=== PATIENT | female | born 1960 | race Caucasian/White ===

== ENCOUNTER 2018-04-14 13:56 | Day surgery (SDC) | payer BC ==
[2018-04-10 16:47] LABS: BASOPHILS % (AUTO) 0.4 % (0-1); EOSINOPHILS # (AUTO) 0.1 X10'3 (0-0.9); EOSINOPHILS % (AUTO) 2.4 % (0-6); HEMOGLOBIN 14.7 g/dl (12.0-16.0); LYMPHOCYTES # (AUTO) 2.2 X10'3 (1.1-4.8); LYMPHOCYTES % (AUTO) 36.3 % (21-51); MEAN CORPUSCULAR HGB CONC 34.2 % (33.0-36.5); MEAN CORPUSCULAR VOLUME 90.7 FL (78-98); MONOCYTES # (AUTO) 0.4 X10'3 (0-0.9); MONOCYTES % (AUTO) 5.8 % (2-12); NEUTROPHILS # (AUTO) 3.4 X10'3 (1.8-7.7); NEUTROPHILS % (AUTO) 55.1 % (42-75); PLATELET COUNT 182 X10'3 (140-440); RED BLOOD COUNT 4.74 X10'6 (4.20-5.60); RED CELL DISTRIBUTION WIDTH 13.4 % (11.5-14.5); WHITE BLOOD COUNT 6.2 X10'3 (4.5-11.0)
[2018-04-10 16:57] LABS: INR 0.9 INR; PARTIAL THROMBOPLASTIN TIME 30 SECONDS (22-32); PROTHROMBIN TIME 9.8 SECONDS (9.0-12.0)
[2018-04-10 17:02] LABS: ALBUMIN 3.9 G/DL (3.4-5.0); ANION GAP 11 (8-16); BLOOD UREA NITROGEN 15 MG/DL (7-18); BUN/CREATININE RATIO 23.8 (6.6-38.0); CALCIUM 9.1 MG/DL (8.5-10.1); CHLORIDE 103 MMOL/L (99-107); CHOL/HDL RATIO 3.3 (0.00-4.99); CHOLESTEROL 204 MG/DL (0-200); CREATININE 0.63 MG/DL (0.40-0.90); GLUCOSE 84 MG/DL (70-104); HDL CHOLESTEROL 61 MG/DL (35-60); LDL CHOLESTEROL 124 MG/DL (50-100); POTASSIUM 3.5 MMOL/L (3.5-5.1); SODIUM 141 MMOL/L (135-145); TRIGLYCERIDES 91 MG/DL (20-135); eGFR > 90 ML/MIN
[~2018-04-14] VITALS: Ht 170.2 cm; Wt 74.2 kg
[2018-04-14] VITALS (10 sets, daily range): BP systolic 95–136; BP diastolic 50–73
[2018-04-14] MEDS ORDERED: LORazepam 0.5 MG tablet PO PRN (14:15)
[2018-04-14] MEDS ORDERED: diphenhydrAMINE 25mg capsule PO PRN (14:15)
[2018-04-14] MEDS ORDERED: LIDOcaine/PRILOcaine 5gm cream TP ONE (14:15)
[2018-04-14] MEDS ORDERED: normal saline 1000ml 1,000 ML IV SCH (14:15)
[2018-04-14] MEDS ORDERED: NICO-630 TOP (14:22)
[2018-04-14] MEDS ORDERED: CITA10TA71 PO (14:22)
[2018-04-14] MEDS ORDERED: verapamil 2.5 mg/ml inj IV ONE (16:41)
[2018-04-14] MEDS ORDERED: midazolam 2 mg/2 ml injection ONE (16:41)
[2018-04-14] MEDS ORDERED: nitroGLYCERIN-Tridil 50MG/D5W 250 ML IV ONE (16:41)
[2018-04-14] MEDS ORDERED: fentaNYL/PF 50MCG/1 ML 2ML syringe ONE (16:41)
[2018-04-14] MEDS ORDERED: LIDOcaine 1.5% w/epinephrine 1:200,000 5ml ampul ONE (16:42)
[2018-04-14] MEDS ORDERED: iohexol 350MG/ML 100ml bottle IV ONE (16:42)
[2018-04-14] MEDS ORDERED: heparin 1,000unit/ml 10ml vial 10 ML ONE (16:42)
[2018-04-14] MEDS ORDERED: LIDOcaine 1% 30ml preserv. free vial ONE (16:47)
== END 2018-04-14 20:15 | disposition home or self-care (01) ==
LOC: SSTAY O 13:56
PROVIDERS: ATTEND Internal Medicine Interventional Cardiology
DX: I25.118 Atherosclerotic heart disease of native coronary artery with other forms of angina pectoris (principal); E78.5 Hyperlipidemia, unspecified; E78.4 Other hyperlipidemia; I47.9 Paroxysmal tachycardia, unspecified; F17.210 Nicotine dependence, cigarettes, uncomplicated; K21.9 Gastro-esophageal reflux disease without esophagitis; Z90.89 Acquired absence of other organs; Z88.0 Allergy status to penicillin; Z98.890 Other specified postprocedural states; Z79.899 Other long term (current) drug therapy
CPT/HCPCS: 36415; 80048; 80061; 85025; 85610; 85730; 93005; 93458; 99152; 99153; A6257; A6258; A6402; C1769; J1644; J2250; J3010; J3490; J7030; Q0163; Q9967; A4620